=== PATIENT | male | born 1955 | race Caucasian/White ===

== ENCOUNTER 2018-06-20 12:11 | Inpatient (IN) ==
[2018-06-20] MEDS ORDERED: ASPIRIN 325 MG TABLET PO STA (12:40)
[2018-06-20 13:05] LABS: Basophils # 0.1 10*3/uL (0.0-0.2); Basophils % 0.3 % (0.0-0.8); Eosinophils % 0.1 % (0.00-10.9); Hematocrit 50.2 VOL% (42.0-52.0); Hemoglobin 16.3 GM/DL (14.0-18.0); Immature Granulocytes % 0.5 %; Immature Granulocytes Absolute 0.09 #; Lymphocytes # 1.4 10*3/uL (1.4-4.0); Mean Corpuscular HGB Conc 32.5 GM/DL (32-36); Mean Corpuscular Hemoglobin 30 PG (27-34); Mean Corpuscular Volume 91.8 FL (87-102); Mean Platelet Volume 12.1 FL (9.6-12.0); Monocytes # 1.5 10*3/uL (0.11-0.8); Neutrophils # 13.8 10*3/uL (1.4-7.4); Neutrophils % 82.1 % (38.7-73.9); Platelet Count 209 T/CUMM (130-400); Red Blood Count 5.47 MC/CUMM (3.8-5.5); Red Cell Distribution Width 13.6 % (9.3-17.3); White Blood Count 16.9 T/CUMM (4-12)
[2018-06-20 13:14] LABS: INR 1.1; PT Patient Result 11.8 SECS; Partial Thromboplastin Time 22.9 SECS (0-40)
[2018-06-20 13:27] LABS: Alanine Aminotransferase 33 U/L (16-61); Albumin 4.4 G/DL (3.4-5.0); Alkaline Phosphatase 81 U/L (45-117); Aspartate Amino Transferase 18 U/L (0-37); Blood Urea Nitrogen 21 MG/DL (7-18); Glucose 147 MG/DL (74-106); Osmolality,Calculated 284.4 MOS/KG (273-304); Sodium 140 MMOL/L (136-145); Total Protein 7.2 G/DL (6.4-8.3); Troponin I < 0.015 NG/ML (0.00-0.045)
[2018-06-20] MEDS ORDERED: METOCLOPRAMIDE 10 MG/2 ML VIAL IV STA (13:54)
[2018-06-20] MEDS ORDERED: PANTOPRAZOLE 40 MG VIAL IV STA (13:54)
[2018-06-20] MEDS ORDERED: ONDANSETRON 4 MG/2 ML VIAL IV STA (13:54)
[2018-06-20] MEDS ORDERED: SODIUM CHLORIDE 0.9% 1,000 ML IV STA (14:08)
[2018-06-20 14:37] LABS: Apearance,Urine CLEAR (Clear); Bilirubin,Urine Negative (Negative); Blood, Urine Negative (Negative); Glucose,Urine (UA) Negative (Negative); Hyaline Casts,Urine 1 /LPF (0-3); Ketones,Urine 5 mg/dL (Negative); Mucus,Urine Few /LPF (Occasional); Nitrite,Urine Negative (Negative); Protein,Urine 30 MG/DL; RBC,Urine 2 /HPF (0-4); Urine Color Yellow (Yellow); Urine Specific Gravity 1.033 (1.001-1.035); Urine Urobilinogen < 2.0 EU/DL (0.2-1.0); WBC,Urine 1 /HPF (0-6)
[2018-06-20 14:39] LABS: Barbiturates Screen,Urine Negative (Negative); Benzodiazepines Screen,Urine Negative (Negative); Cannabinoid Screen,Urine Negative (Negative); Opiate Screen,Urine Negative (Negative); Phencyclidine Screen,Urine Negative (Negative)
[2018-06-20] MEDS ORDERED: fentaNYL 100 MCG/2 ML VIAL IV PRN (15:11)
[2018-06-20] MEDS ORDERED: ONDANSETRON 4 MG/2 ML VIAL IV PRN (15:11)
[2018-06-20] MEDS: SODIUM CHLORIDE 0.45% 1,000 ML IV SCH (17:58)
[2018-06-20] MEDS ORDERED: METOCLOPRAMIDE 10 MG/2 ML VIAL IV SCH (18:00)
[2018-06-20] MEDS ORDERED: NITROGLYCERIN SL 0.4 MG TABLET SL PRN (20:24)
[2018-06-20] MEDS: ROSUVASTATIN 20 MG TABLET PO SCH (21:04)
[2018-06-20] MEDS: EZETIMIBE 10 MG TABLET PO SCH (21:04)
[2018-06-20] MEDS: ZALEPLON 5 MG CAPSULE PO SCH (21:05)
[2018-06-20] MEDS: ASPIRIN EC 325 MG TABLET PO SCH (21:06)
[2018-06-20] MEDS: METOCLOPRAMIDE 10 MG/2 ML VIAL IV SCH (21:40)
[2018-06-21] MEDS: SODIUM CHLORIDE 0.45% 1,000 ML IV SCH ×2 (01:50→18:31)
[2018-06-21] MEDS: METOCLOPRAMIDE 10 MG/2 ML VIAL IV SCH ×4 (03:06→23:01)
[2018-06-21 05:50] LABS: Basophils # 0.1 10*3/uL (0.0-0.2); Basophils % 0.5 % (0.0-0.8); Eosinophils # 0.1 10*3/uL (0.0-0.87); Hematocrit 46.9 VOL% (42.0-52.0); Immature Granulocytes % 0.3 %; Immature Granulocytes Absolute 0.03 #; Lymphocytes # 2.6 10*3/uL (1.4-4.0); Lymphocytes % 25.8 % (21.2-54.2); Mean Corpuscular Hemoglobin 30 PG (27-34); Mean Corpuscular Volume 92.3 FL (87-102); Mean Platelet Volume 12.6 FL (9.6-12.0); Monocytes # 0.8 10*3/uL (0.11-0.8); Monocytes % 8.2 % (1.7-12.7); Neutrophils # 6.5 10*3/uL (1.4-7.4); Neutrophils % 64.2 % (38.7-73.9); Platelet Count 180 T/CUMM (130-400); Red Blood Count 5.08 MC/CUMM (3.8-5.5); Red Cell Distribution Width 13.9 % (9.3-17.3); White Blood Count 10.1 T/CUMM (4-12)
[2018-06-21 06:28] LABS: Calcium 8.1 MG/DL (8.5-10.1); Osmolality,Calculated 278.5 MOS/KG (273-304); Potassium 4.3 MMOL/L (3.5-5.1)
[2018-06-21] MEDS ORDERED: ATENOLOL 25 MG TABLET PO SCH (09:00)
[2018-06-21] MEDS: PANTOPRAZOLE 40 MG VIAL IV SCH (09:44)
[2018-06-21] MEDS: CITALOPRAM 20 MG TABLET PO SCH (09:44)
[2018-06-21] MEDS ORDERED: ASPIRIN CHEW 81 MG TABLET PO ONE (15:10)
[2018-06-21] MEDS ORDERED: ENOXAPARIN 100 MG/ML SYRINGE SUBCUT ONE (16:00)
[2018-06-21] MEDS: amLODIPine 5 MG TABLET PO SCH (16:47)
[2018-06-21] MEDS: SODIUM CHLORIDE 0.9% 1,000 ML IV SCH (17:00)
[2018-06-21] MEDS: ROSUVASTATIN 20 MG TABLET PO SCH (20:55)
[2018-06-21] MEDS: EZETIMIBE 10 MG TABLET PO SCH (20:56)
[2018-06-21] MEDS: ASPIRIN EC 325 MG TABLET PO SCH (20:56)
[2018-06-21] MEDS: ZALEPLON 5 MG CAPSULE PO SCH (22:00)
[2018-06-22 05:24] LABS: Basophils # 0.1 10*3/uL (0.0-0.2); Basophils % 0.9 % (0.0-0.8); Eosinophils # 0.1 10*3/uL (0.0-0.87); Eosinophils % 2.2 % (0.00-10.9); Hematocrit 47.2 VOL% (42.0-52.0); Hemoglobin 15.1 GM/DL (14.0-18.0); Immature Granulocytes % 0.2 %; Immature Granulocytes Absolute 0.01 #; Lymphocytes % 31.1 % (21.2-54.2); Mean Corpuscular Hemoglobin 30 PG (27-34); Mean Corpuscular Volume 92.2 FL (87-102); Mean Platelet Volume 12.3 FL (9.6-12.0); Monocytes # 0.7 10*3/uL (0.11-0.8); Monocytes % 10.5 % (1.7-12.7); Neutrophils # 3.5 10*3/uL (1.4-7.4); Neutrophils % 55.1 % (38.7-73.9); Platelet Count 147 T/CUMM (130-400); Red Blood Count 5.12 MC/CUMM (3.8-5.5); Red Cell Distribution Width 13.5 % (9.3-17.3); White Blood Count 6.4 T/CUMM (4-12)
[2018-06-22 05:41] LABS: Calcium 8.1 MG/DL (8.5-10.1); Osmolality,Calculated 282.1 MOS/KG (273-304); Potassium 3.7 MMOL/L (3.5-5.1)
[2018-06-22] MEDS ORDERED: ENOXAPARIN 60 MG/0.6 ML SYRINGE SUBCUT ONE (06:00)
[2018-06-22] MEDS: METOCLOPRAMIDE 10 MG/2 ML VIAL IV SCH ×4 (06:22→21:09)
[2018-06-22] MEDS: SODIUM CHLORIDE 0.9% 1,000 ML IV SCH (06:37)
[2018-06-22] MEDS: PANTOPRAZOLE 40 MG VIAL IV SCH (08:55)
[2018-06-22] MEDS ORDERED: LOSARTAN 50 MG TABLET PO SCH (09:00)
[2018-06-22] MEDS ORDERED: POTASSIUM CHLORIDE RIDER 10 MEQ in PREMIX 1 EACH IV PRN (09:25)
[2018-06-22] MEDS ORDERED: MAGNESIUM SULF RIDER 2 GM in PREMIX 1 EACH IV PRN (09:25)
[2018-06-22 09:42] LABS: Troponin I < 0.015 NG/ML (0.00-0.045)
[2018-06-22] MEDS ORDERED: DIAZEPAM 5 MG TABLET PO ONE (10:30)
[2018-06-22] MEDS ORDERED: SODIUM CHLORIDE 0.9% 1,000 ML IV SCH (10:30)
[2018-06-22] MEDS ORDERED: diphenhydrAMINE CAP 25 MG CAPSULE PO ONE (10:30)
[2018-06-22] MEDS: ASPIRIN CHEW 81 MG TABLET PO SCH (10:56)
[2018-06-22] MEDS ORDERED: LIDOCAINE 1% 20 ML VIAL ONE (12:11)
[2018-06-22] MEDS ORDERED: MIDAZOLAM 2 MG/2 ML VIAL ONE (12:11)
[2018-06-22] MEDS ORDERED: fentaNYL 100 MCG/2 ML VIAL ONE (12:11)
[2018-06-22 12:13] LABS: Troponin I < 0.015 NG/ML (0.00-0.045)
[2018-06-22] MEDS ORDERED: NIFEdipine 10 MG CAPSULE PO ONE ×2 (12:29→12:46)
[2018-06-22] MEDS: amLODIPine 5 MG TABLET PO SCH (14:10)
[2018-06-22] MEDS: ATENOLOL 100 MG TABLET PO SCH (14:10)
[2018-06-22] MEDS: CITALOPRAM 20 MG TABLET PO SCH (14:11)
[2018-06-22] MEDS: EZETIMIBE 10 MG TABLET PO SCH (21:08)
[2018-06-22] MEDS: ROSUVASTATIN 20 MG TABLET PO SCH (21:08)
[2018-06-22] MEDS: ZALEPLON 5 MG CAPSULE PO SCH (21:10)
[2018-06-22] MEDS ORDERED: ACETAMINOPHEN 500 MG TABLET PO SCH (22:00)
[2018-06-23] MEDS ORDERED: ACETAMINOPHEN 500 MG TABLET PO PRN (00:30)
[2018-06-23] MEDS: METOCLOPRAMIDE 10 MG/2 ML VIAL IV SCH ×2 (03:19→09:18)
[2018-06-23 05:35] LABS: Basophils # 0.1 10*3/uL (0.0-0.2); Basophils % 0.7 % (0.0-0.8); Eosinophils # 0.2 10*3/uL (0.0-0.87); Eosinophils % 2.3 % (0.00-10.9); Immature Granulocytes % 0.2 %; Immature Granulocytes Absolute 0.02 #; Lymphocytes # 1.6 10*3/uL (1.4-4.0); Lymphocytes % 18.5 % (21.2-54.2); Mean Corpuscular HGB Conc 32.7 GM/DL (32-36); Mean Corpuscular Hemoglobin 30 PG (27-34); Mean Corpuscular Volume 90.6 FL (87-102); Mean Platelet Volume 12.1 FL (9.6-12.0); Monocytes % 11.4 % (1.7-12.7); Neutrophils # 5.8 10*3/uL (1.4-7.4); Neutrophils % 66.9 % (38.7-73.9); Platelet Count 184 T/CUMM (130-400); Red Blood Count 5.41 MC/CUMM (3.8-5.5); Red Cell Distribution Width 13.6 % (9.3-17.3); White Blood Count 8.6 T/CUMM (4-12)
[2018-06-23 05:57] LABS: Albumin 3.5 G/DL (3.4-5.0); Bilirubin,Total 1.2 MG/DL (0.2-1.0); Calcium 8.6 MG/DL (8.5-10.1); Osmolality,Calculated 280.4 MOS/KG (273-304); Total Protein 6.6 G/DL (6.4-8.3)
[2018-06-23 07:40] VITALS: BP 173/88
[2018-06-23] MEDS ORDERED: PSEUDOEPHEDRINE 30 MG TABLET PO PRN (08:01)
[2018-06-23] MEDS ORDERED: IRBESARTAN 150 MG TABLET PO SCH (09:00)
[2018-06-23] MEDS ORDERED: IRBESARTAN 300 MG PO SCH (09:00)
[2018-06-23] MEDS ORDERED: AMOXICILLIN 500 MG CAPSULE PO SCH (09:00)
[2018-06-23] MEDS: CITALOPRAM 20 MG TABLET PO SCH (09:09)
[2018-06-23] MEDS: ASPIRIN CHEW 81 MG TABLET PO SCH (09:10)
[2018-06-23] MEDS: ATENOLOL 100 MG TABLET PO SCH (09:10)
[2018-06-23] MEDS: PANTOPRAZOLE 40 MG VIAL IV SCH (09:13)
[2018-06-23] MEDS ORDERED: ISOSORBIDE MONONITRATE 30 MG TABLET PO SCH (09:30)
== END 2018-06-23 10:45 | disposition home or self-care (01) | DRG 287 ==
LOC: N.ED 12:11 → N.EDINP 15:10 → N.2E 17:42
PROVIDERS: ADMIT Family Medicine; ATTEND Family Medicine